=== PATIENT | male | born 1990 | race Caucasian/White ===

== ENCOUNTER 2016-08-14 21:28 | Emergency (ER) | payer MEDICAID ==
[2016-08-14 21:28] VITALS: BMI 28.1
--- NOTE | 2016-08-14 21:53 | EDPRACDOC ---
- General Information Stated Complaint: PSYCH Time Seen by Provider: 08/14/16 21:47 Home Medications: Home Medications Dextroamphetamine/Amphetamine [Adderall Xr 20 mg Capsule] 40 mg PO DAILY Allergies/Adverse Reactions: Allergies Allergy/AdvReac Type Severity Reaction Status Date / Time No Known Allergies Allergy Verified 12/30/15 05:49 - History of Present Illness Onset: TODAY Exact Onset of Symptoms: Unknown HPI: PT PRESENTS TODAY VIA EMS FOR AMS. PT STATES THAT 911 WAS CALLED BECAUSE "I WAS ARGUING WITH MY MOM AND I WAS KICKING IN THE DOOR". PT STATES HE CAME TO HOSPITAL BECAUSE HE "JUST WANTED TO GET OUT OF THE HOUSE". PER EMS, PTS BP WAS 220/110 AND HR 140 AND PT WAS UNABLE TO CLEARLY ANSWER QUESTIONS. CURRENTLY , PT CAN TELL ME YEAR, NEW PRESIDENT, PERSON/PLACE/TIME AND BP HAS LOWERED TO 168/80 W/OUT INTERVENTION. PT STATES THAT HE DOES NOT WISH TO BE EVALUATED. Symptoms began: Suddenly Duration: Since Onset Symptoms Currently: Reports: Improved Altered Quality: Reports: Confusion Altered Severity: Reports: Mild Recent Symptoms of: Reports: None Relevant History: Reports: None Prehospital: Reports: [employer], IV ED Past Medical History - History Reviewed Yes Nurses notes reviewed and agree except as marked - Patient Medical History Psychological History: Reports: Substance Use Disorder - Social Medical History Smoking Status: Heavy tobacco smoker (5 or more cigarettes/day or daily pipe/ cigar) Social History: Reports: Amphetamine Use, Substance Use Disorder EDM Review of Systems - Review of Systems ROS Negative Except as Marked: Yes All systems reviewed and were negative except as marked Constitutional: No Symptoms Reported Respiratory: No Symptoms Reported Cardiovascular: No Symptoms Reported Gastrointestinal: No Symptoms Reported Neurological: No Symptoms Reported Musculoskeletal: No Symptoms Reported Integumentary: No Symptoms Reported - Physical Exam Constitutional: Alert (Awake), No apparent distress Oriented to: Time, Person, Place Last recorded Vital Signs: Oxygen Pulse Oxygen Saturation O2 Device Oxygen Flow Rate Fraction of Inspired Oxygen ( FIO2) - HEENT Head: Normal Eye Exam: Normal Neck: Normal, Denies Pain, Midline - Respiratory/Cardiovascular Respiratory: Normal - CTA Cardiovascular: Tachycardia - GI Auscultation: Normal Palpation: Normal Tenderness: Non tender - Musculoskeletal Back: Normal Extremities: Normal - Integumentary Skin: Normal Lymphatics: Normal - Neurologic Cerebellar: Normal Mood Description: Normal Thought: Coherent Perception: Normal - Additional Information Additional Information: PT UNDERSTANDS RISKS OF LEAVING W/OUT EVALUATION AND CAN MAKE CLEAR DECISIONS AT THIS TIME. Decision Time to Discharge: 21:52 - Departure Disposition: AMA Condition: Stable Final Diagnosis: Hypertension Qualifiers: Hypertension type: unspecified secondary hypertension Qualified Code(s): I15.9 - Secondary hypertension, unspecified Instructions: Chronic Hypertension (ED) Education/Counseling Given To: Patient Education/Counseling Given Regarding: Diagnosis, Treatment, Follow Up Referrals: None,No Provider [Primary Care Provider] - One Week Additional Instructions: YOU MUST GET YOUR BLOOD PRESSURE UNDER CONTROL OR YOU COULD CAUSE HEART, BRAIN AND KIDNEY DAMAGE. FEEL FREE TO RETURN TO ED FOR ANY CONCERNS.
[2016-08-14 22:03] VITALS: BP 167/78; PULSE 125; TEMP 98.4
== END 2016-08-14 21:55 | disposition left against medical advice (07) ==
LOC: ED 21:28
DX: I15.9 Secondary hypertension, unspecified (principal); F17.200 Nicotine dependence, unspecified, uncomplicated; F15.10 Other stimulant abuse, uncomplicated
CPT/HCPCS: 99282